=== PATIENT | female | born 2000 | race Two or more races ===

== ENCOUNTER 2024-02-22 06:17 | Emergency (ER) | payer MEDICAID ==
[~2024-02-22] VITALS: Ht 154.9 cm; Wt 53.2 kg
[2024-02-22 06:56] LABS: Urine Bacteria None Seen /hpf (None Seen)
[2024-02-22 07:04] LABS: Urine Blood 1+ /uL (Negative); Urine Budding Yeast FEW /hpf (None Seen); Urine Clarity Turbid (Clear); Urine Protein, UAD TRACE (Negative); Urine Specific Gravity 1.022 (1.001-1.035); Urine Urobilinogen 2 mg/dL (Negative); Urine WBC 761 /hpf (0 - 5); Urine WBC Clumps PRESENT /hpf (None Seen)
[2024-02-22 07:05] LABS: Urine Color STRAW (Yellow)
[2024-02-22 07:25] VITALS: PULSE 98; RESP 20; O2SAT 98
[2024-02-22] MEDS: cefTRIAXone SOD 1,000 MG VL IM ONE (07:26)
[2024-02-22 07:36] VITALS: BP 108/67; PULSE 92; RESP 16; TEMP 98.5; O2SAT 97
[2024-02-22 07:53] LABS: Vaginal Bacteria Many; Vaginal Epithelial Cells Rare
[2024-02-22 08:01] LABS: Vaginal Trichomonas Not Present
[2024-02-22 08:02] LABS: Vaginal Clue Cells None Seen
[2024-02-22] MEDS ORDERED: PHEN-922 PO (08:15)
[2024-02-22] MEDS ORDERED: METR-344 PO (08:15)
[2024-02-22] MEDS ORDERED: DOXY1CAP58 PO (08:15)
[2024-02-24 11:06] LABS: Chlamydia Trachomatis, NAA Negative (Negative); Neisseria gonorrhoeae, NAA Positive (Negative)
== END 2024-02-22 08:20 | disposition home or self-care (01) ==
LOC: ER 06:17
DX: N39.0 Urinary tract infection, site not specified (principal); N76.0 Acute vaginitis; Z20.2 Contact with and (suspected) exposure to infections with a predominantly sexual mode of transmission; Z79.899 Other long term (current) drug therapy
CPT/HCPCS: 81001; 81025; 87210; 87491; 87591; 96372; 99283; J0696; 96361; 96365; 96375

== ENCOUNTER 2024-10-27 03:51 | Emergency (ER) | payer MEDICAID, OTHER ==
[~2024-10-27] VITALS: Ht 160 cm; Wt 52.4 kg
[~2024-10-27 03:51] MED LIST: DOXY1CAP58 PO; METR-344 PO; PHEN-922 PO
[2024-10-27 03:55] VITALS: BP 146/93; PULSE 127; TEMP 99.7
[2024-10-27] MEDS: DexAMETHasone SOD PHOS 10MG/1ML VIAL INJ IM ONE (04:06)
[2024-10-27] MEDS: IPRATROPIUM BROM 0.5 MG/2.5ML INH SOL ONE (04:21)
[2024-10-27] MEDS: ALBUTEROL SULF 2.5 MG/0.5ML(0.5%) NEB SOLN NEB ONE (04:21)
[2024-10-27] MEDS: IPRATROPIUM BROM 0.5 MG/2.5ML INH SOL NEB ONE (04:21)
[2024-10-27 04:22] VITALS: RESP 20; O2SAT 95
--- NOTE | 2024-10-27 04:30 | ED.PDOC ---
SOB-HPI HPI Comments PATIENT C/O ASTHMA EXACERBATION SINCE 2200 LAST NIGHT. PATIENT SATURATING 98% ON ROOM AIR. STATES SHE USED HER INHALER LAST AT MIDNIGHT. SYMPTOMS OF THROAT PAIN AND SWELLING. DENIES DIFFICULTY BREATHING, SHORTNESS OF BREATH, CHEST PAIN, FEVER OR CHILLS Chief Complaint: Asthma Time Seen by MD: 04:01 Reviewed notes: Nurses Notes, Medications, Allergies Information Source: Patient Mode of Arrival: Ambulatory Past Medical History PAST MEDICAL HISTORY: Asthma Surgical History: Denies all surgeries INKER AND OPAQUER History: No Pertinent INKER AND OPAQUER History Family History Family History: Reviewed,noncontributory to illness Social History Smoker: Non-Smoker Alcohol: Denies ETOH Use Drugs: Denies Drug Use Lives In: Home Constitutional: reports: chills, fever; denies: diaphoresis, fatigue, malaise, sweats, weakness, others EENTM: reports: throat pain, throat swelling; denies: blurred vision, double vision, ear bleeding, ear discharge, ear drainage, ear pain, ear ringing, eye pain, eye redness, hearing loss, mouth pain, mouth swelling, nasal discharge, nose bleeding, nose congestion, nose pain, photophobia, tearing, voice changes, others Respiratory: reports: cough, wheezing; denies: hemoptysis, orthopnea, SOB at rest, shortness of breath, SOB with excertion, stridor, others Cardiovascular: denies: chest pain, dizzy spells, diaphoresis, Dyspnea on exertion, edema, irregular heart beat, left arm pain, lightheadedness, palpitations, PND, syncope, others Gastrointestinal: denies: abdomen distended, abdominal pain, blood streaked bowels, constipated, diarrhea, dysphagia, difficulty swallowing, hematemesis, melena, nausea, poor appetite, poor fluid intake, rectal bleeding, rectal pain, vomiting, others Genitourinary: denies: abnormal vagina bleeding, burning, dyspareunia, dysuria, flank pain, frequency, hematuria, incontinence, pain, , vagina discharge, urgency, others Neurological: denies: dizziness, fainting, headache, left sided numbness, left sided weakness, numbness, paresthesia, pre-existing deficit, right sided numbness, right sided weakness, seizure, speech problems, tingling, tremors, weakness, others Musculoskeletal: denies: back pain, gout, joint pain, joint swelling, muscle pain, muscle stiffness, neck pain, others Integumetry: denies: bruises, change in color, change in hair/nails, dryness, laceration, lesions, lumps, rash, wounds, others Allergic/Immunocompromised: denies: Difficulty Healing, Frequent Infections, Hives, Itching, others Hematologic/Lymphatic: denies: anemia, blood clots, easy bleeding, easy bruising, swollen glands, others Endocrine: denies: excessive hunger, excessive sweating, excessive thirst, excessive urination, flushing, intolerance to cold, intolerance to heat, unexplained weight gain, unexplained weight loss, others Psychiatric: denies: anxiety, bipolar disorder, depression, hopeless, panic disorder, schizophrenia, sleepless, suicidal, others Physical Exam General Appearance: No Apparent Distress, Normal HEENT: Normal ENT Inspection, Pharynx Normal, TMs Normal, Tonsillar Exudate (TONSILS GRADE 4) Neck: Full Range of Motion, Non-Tender Respiratory: Chest Non-Tender, No Accessory Muscle Use, No Respiratory Distress, Wheezing Cardiovascular: No Edema, No JVD, No Murmur, No Gallop, Normal Peripheral Pulses, Regular Rate/Rhythm Breast Exam: Deferred Gastrointestinal: No Organomegaly, Non Tender, No Pulsatile Mass, Normal Bowel Sounds, Soft Genitalia: Deferred Pelvic: Deferred Rectal: Deferred Extremities: Normal capillary refill, Normal inspection, Normal range of motion, Non-tender, No pedal edema Musculoskeletal : Apperance: Normal Neurologic: Alert, carding doubler II-XII nml as Tested, No Motor Deficits, Normal Affect, Normal Mood, No Sensory Deficits Cerebellar Function: Normal Reflexes: Normal Skin: Dry, Normal Color, Warm Lymphatic: No Adenopathy Was a procedure done? Was a procedure done?: No Differential Dx Differential Diagnosis: Bronchitis, Panic Attack, Pneumonia, URI X-Ray, Labs, Meds, VS Vital Signs Date Time Temp Pulse Resp B/P (MAP) Pulse Ox O2 Delivery O2 Flow Rate FiO2 10/27/24 04:22 20 95 Room Air* 0 21 10/27/24 03:55 99.7 127 24 146/93 (110) 98 99.7 10/27/24 03:55 24 98 Room Air* 0 21 Current Medications Medications (Trade) Dose Ordered Sig/[place] Route Start Time Stop Time Status Last Admin Albuterol (Ventolin Medneb) 5 mg ONCE ONCE NEB 10/27/24 04:15 10/27/24 04:16 DC 10/27/24 04:21 Ipratropium [place] (Atrovent Medneb) 0.5 mg ONCE ONCE NEB 10/27/24 04:15 10/27/24 04:16 DC 10/27/24 04:21 Dexamethasone Sodium Phosphate (Decadron Injection) 10 mg ONCE ONCE IM 10/27/24 04:15 10/27/24 04:16 DC 10/27/24 04:06 X-Ray, Labs, Meds, VS Comment LUNGS CLEAR AND EQUAL BILATERAL AFTER BREATHING TREATMENT. WE WILL TREAT FOR ACUTE TONSILLITIS. SCRIPT ANTIBIOTICS AND MEDROL DOSEPAK. ADVISED TO REST INCREASE P.O. FLUIDS WITH ELECTROLYTES. [id number] TYLENOL OR MOTRIN NEEDED FOR PAIN OR FEVER PER LABELED DOSING INSTRUCTIONS. FOLLOW UP WITH YOUR PCP IN 2 DAYS FOR RE-EVALUATION. TAKE MEDICATIONS PRESCRIBED SIDE EFFECTS DISCUSSED. PATIENT INDICATES UNDERSTANDING AND AGREES WITH DISCHARGE PLAN OF CARE. Time of 1ST Reevaluation: 04:28 Reevaluation 1ST: Improved Patient Education/Counseling: Diagnosis, Treatment, Prognosis, Need For Follow Up Family Education/Counseling: Diagnosis, Treatment, Prognosis, Need For Follow Up Departure 1 Departure Time of Disposition: 04:38 Impression: Primary Impression: Acute asthma Additional Impression: Acute tonsillitis Qualified Codes: J03.90 - Acute tonsillitis, unspecified Disposition: 01 HOME / SELF CARE / HOMELESS Condition: Stable e-Prescriptions Methylprednisolone (Medrol Dosepak) 4 Mg [place] 4 MG PO UD for 6 Days, #21 TAB UAD Prov: DONALD FARIA 10/27/24 Azithromycin (Azithromycin) 500 Mg Tab 1 TAB PO DAILY for 5 Days, #5 TAB Prov: DONALD FARIA 10/27/24 Discharged With: Relative (Mother) Critical Care Note Critical Care Time?: No Stability Stability form required: No Heart Score Heart Score: Heart Score Response (Comments) Value History N/A 0 EKG N/A 0 Age <45 0 Risk Factors N/A 0 Troponin N/A 0 Total 0 DONALD FARIA Oct 27, 2024 04:30
[2024-10-27] MEDS ORDERED: METH4PAK PO (04:38)
[2024-10-27] MEDS ORDERED: AZIT500T66 PO (04:38)
[2024-10-27] MEDS: cefTRIAXone SOD 1,000 MG VL IM ONE (04:48)
== END 2024-10-27 05:02 | disposition home or self-care (01) ==
LOC: ER 03:51
DX: J45.901 Unspecified asthma with (acute) exacerbation (principal); J03.90 Acute tonsillitis, unspecified
CPT/HCPCS: 94640; 96372; 99284; J0696; J1100